=== PATIENT | male | born 1995 | race Caucasian/White ===

== ENCOUNTER 2023-12-25 22:55 | Emergency (ER) | payer OTHER ==
[~2023-12-25] VITALS: Ht 165.1 cm; Wt 70.8 kg
[2023-12-25 23:05] VITALS: BP 122/75; PULSE 87; RESP 18; TEMP 98.2; O2SAT 98
[2023-12-25 23:27] VITALS: O2SAT 98
--- NOTE | 2023-12-25 23:27 | NUR ---
28 yo male patient presents to the ED with complaints of intermittent chest pain x 1 month. Patient describes his chest pain as pressure like. Pt states he was seen at another hospital 1.5 months ago for the same symptoms and was told everything was normal. Patient states he gets his chest pain when doing any daily activity. Patient states he experiences getting dizzy when sitting down or standing up and a dry mouth. Patient denies taking any medication for his symptoms. Patient denies a social hx. Patient denies any other associated symptoms. NKDA DENIES MED HX
--- NOTE | 2023-12-25 23:54 | NUR ---
DR. BENTLEY EXAMINING PT.
[2023-12-26] VITALS: O2SAT 98
--- NOTE | 2023-12-26 00:20 | NUR ---
Patient discharged with v/s stable. Written and verbal after care instructions given and explained. Patient verbalized understanding. Ambulatory with steady gait. All questions addressed prior to discharge. Advised to follow up with PMD.
== END 2023-12-26 00:20 | disposition home or self-care (01) ==
LOC: MED 22:55
DX: R07.89 Other chest pain (principal); R42 Dizziness and giddiness
CPT/HCPCS: 93005; 99283